=== PATIENT | female | born 2005 | race Caucasian/White ===

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

== ENCOUNTER 2024-12-06 09:24 | Outpatient (CLI) | payer MEDICAID, SELFPAY ==
[2024-12-06 10:18] LABS: Basophils # 0.1 10^3/uL (0.0-0.1); Basophils % 0.8 %; Eosinophils # 0.4 10^3/uL (0.0-0.8); Eosinophils % 4.3 %; Hematocrit 44.2 % (36-47); Lymphocytes % 23.6 %; Mean Corpuscular HGB Conc 34.4 g/dL (30-55); Mean Corpuscular Hemoglobin 30.4 pg (27-33); Mean Corpuscular Volume 88.4 fl (85-98); Mean Platelet Volume 9.1 fL (7.4-10.4); Monocytes # 0.5 10^3/uL (0.2-0.9); Monocytes % 5.6 %; Neutrophils # 5.46 10^3/uL (1.8-8.0); Neutrophils % 65.5 %; Nucleated Red Blood Cells % 0 %; Platelet Count 210 10^3/cmm (157-399); White Blood Count 8.35 10^3/uL (4.5-13.0)
[2024-12-06 10:50] LABS: Alanine Aminotransferase 45 U/L (0-33); Albumin Level 3.8 g/dL (3.5-5.2); Alkaline Phosphatase 138 U/L (35-105); Blood Urea Nitrogen 11 mg/dL (6-20); Calcium 9.1 mg/dL (8.5-10.5); Carbon Dioxide 18 mmol/L (22-29); Chloride 113 mmol/L (98-107); Free T4 Free Thyroxine 1.05 ng/dL (0.82-1.77); Globulin 3.7 g/dL (1.3-4.6); Glomerular Filtration Rate 127.5 mL/min (90-130); Glucose 88 mg/dL (65-115); Osmolality Calculated 297 mOsm/kg (285-295); Sodium 144 mmol/L (136-145); Thyroid Stimulating Hormone 1.84 uIU/mL (0.27-4.20); Total Bilirubin 0.2 mg/dL (0.15-1.2); Total Protein 7.5 g/dL (6.6-8.7)
[2024-12-06 10:54] LABS: Aspartate Amino Transferase 27 U/L (0-32)
== END 2024-12-06 09:25 | disposition home or self-care (01) ==
PROVIDERS: PCP Pediatrics Adolescent Medicine; Visit Provider Pediatrics Adolescent Medicine
DX: Z00.01 Encounter for general adult medical examination with abnormal findings (principal)
CPT/HCPCS: 36415; 80053; 84439; 84443; 85025